=== PATIENT | female | born 1955 | race Caucasian/White ===

== ENCOUNTER 2018-09-08 07:30 | Day surgery (SDC) | payer BC, SELFPAY ==
[2018-08-31 15:03] VITALS: BMI 29.6
[2018-09-08] VITALS (13 sets, daily range): BP systolic 105–130; BP diastolic 67–76; PULSE 58–80; RESP 6–16; TEMP 36–37.1; O2SAT 93–99; BMI 29.4
--- NOTE | 2018-09-08 | DI.MG.S_ITS ---
SPECIMEN RIGHT BREAST: 09/08/2018 CLINICAL: Right breast cancer. Correlation is made to exams dated: 07/29/2018 ultrasound biopsy, 07/20/2018 ultrasound, and 07/20/2018 mammogram - [facility]. A specimen was imaged for the abnormality located in the right breast at 4 o'clock posterior depth. Sugical specimen contains wire and adjacent marker clip. IMPRESSION: SPECIMEN The imaged specimen includes wire and adjacent marker clip. This exam was interpreted at Station ID: [id number]. Grant Wu jl/:09/08/2018 15:13:58
--- NOTE | 2018-09-08 | DI.NM.S_ITS ---
PROCEDURE: NM SENTINEL NODE W IMAGING RADIOPHARMACEUTICAL: 1.0 mCi Millipore filtered Tc-99m sulfur colloid. INDICATIONS: Malignant neoplasm of unspecified site of right female breas TECHNIQUE: The area around the nipple was prepped and draped in a sterile fashion. Tc-99m sulfur colloid was injected intra-dermally in the outer edge of the areola in the right breast. Images were obtained subsequently. A body contour outline was obtained. FINDINGS: There is/are 9 lymph node(s) in the ipsilateral axilla, which is marked on the skin and the images for referring physician. IMPRESSION: Administration of radiotracer into the right breast periareolar region for intra-operative sentinel lymph node localization. Dictated by: Annalise Hoskins MD, PhD on 09/08/2018 at 10:41 Approved by: Annalise Hoskins MD, PhD on 09/08/2018 at 10:43
--- NOTE | 2018-09-08 | DI.MG.S_ITS ---
UNILATERAL RIGHT DIGITAL DIAGNOSTIC MAMMOGRAM POST-NEEDLE BIOPSY: 09/08/2018 CLINICAL: Right breast cancer. Comparison is made to exams dated: 07/29/2018 ultrasound biopsy, 07/20/2018 mammogram - [facility], and 07/23/2017 mammogram - [facility]. The tissue of right breast is heterogeneously dense. This may lower the sensitivity of mammography. There is a marker clip in the appropriate position in the right breast at 4 o'clock posterior depth. There is a biopsy clip associated with the wire. IMPRESSION: POST PROCEDURE MAMMOGRAM FOR MARKER PLACEMENT Successful wire localization of clip. This exam was interpreted at Station ID: [id number]. NOTE: For mammograms, a report in lay terms will be sent to the patient. Approximately 15% of breast malignancies will not be visualized mammographically. In the management of a palpable breast mass, a negative mammogram must not discourage biopsy of a clinically suspicious lesion. Electronically Signed By: Grant Wu jl/:09/08/2018 10:01:16 ACR BI-RADS Category Post-procedure mammogram for marker placement
--- NOTE | 2018-09-08 | DI.US.S_ITS ---
ULTRASOUND GUIDED WIRE LOCALIZATION RIGHT BREAST: 09/08/2018 CLINICAL: Post wire placement. Right breast cancer. Correlation is made to exams dated: 09/08/2018 mammogram - [facility], 07/20/2018 mammogram - [facility], and 07/23/2017 mammogram - [facility]. A wire localization using ultrasound guidance was performed for the marker clip located in the right breast at 4 o'clock posterior depth. The skin was prepped in the usual manner. Local anesthetic was administered to the access site. The localization was approached from the lateral aspect. A wire was inserted into the targeted area under ultrasound guidance. IMPRESSION: WIRE LOCALIZATION Wire localization for the marker clip in the right breast at 4 o'clock posterior depth was successful. A specimen radiograph is recommended. This exam was interpreted at Station ID: [id number]. Grant luz/:09/08/2018 10:03:24
--- NOTE | 2018-09-08 | PATH_ITS ---
[facility] Accession Number: [id number] . 01 Material submitted: . PART A: RIGHT BREAST MASS PART B: RIGHT AXILLARY SENTINEL NODES PART C: RIGHT AXILLARY FAT . 02 Diagnosis: A. Right Breast, Excision: Multiple foci of invasive carcinoma. Please see CAP Summary below. . B. Right Axillary [place] Lymph Nodes, Excision: 7 lymph nodes negative for metastatic carcinoma. Please see CAP Summary below. . C. Right Axillary Fat, Biopsy: Breast tissue with no evidence of atypical hyperplasia, in-situ, or invasive carcinoma. . CAP CANCER CASE SUMMARY . Procedure: Excision Specimen Laterality: Right Tumor site: 1 O'Clock . Tumor size: 18 MM Histologic type: Invasive carcinoma with ductal and lobular features. Histologic grade: (Early Histologic Score) Glandular/Tubular differentiation: Score 3 Nuclear Pleomorphism: Score 2 Mitotic Rate: Score 1 Overall Grade: Grade 2 . Tumor focality: Multiple foci of invasive carcinoma Number of foci: 2 Sizes of individual foci: 18 MM, 3 MM Ductal carcinoma in situ: Present, negative for extensive intraductal component. Size (Extent) of DCIS: 9 MM Architectural patterns: Cribriform Nuclear grade: Grade 1 (Low) Necrosis: Not identified Lobular carcinoma in situ: No LCIS in specimen . Tumor Extension Skin: Not applicable Nipple: Not applicable Skeletal muscle: Not applicable . Margins Invasive Carcinoma Margins: Uninvolved by invasive carcinoma Anterior: 2 MM Medial: 5 MM Remaining margins are all greater than 10 MM. DCIS Margins: Uninvolved by DCIS Anterior: 6 MM Remaining margins are all greater than 10 MM. . Regional Lymph Nodes: Uninvolved by tumor cells. Number of Lymph Nodes Examined: 7 Number of [place] Lymph Nodes Examined: 7 . Treatment effect: No known presurgical therapy. . Lymphovascular invasion: Not identified. Dermal lymphovascular invasion: No skin present. . Pathologic Stage Classification (pTNM, AJCC 8th Edition) TNM Descriptors: m (multiple foci of invasive carcinoma) Primary Tumor: pT1c Regional Lymph Nodes: pN0 . Additional Pathologic Findings: Invasive ductal carcinoma (second focus, with the following features): 1. Early Grade 1 (poor tubule formation-3, low mitotic rate-1, low nuclear pleomorphism-1) 2. Size: 6 MM 3. DCIS: Present, low grade, cribriform, with no necrosis. 4. Prognostic markers: -Estrogen Receptor (SP1): Strongly positive, 100% of cells. -Progesterone Receptor (1E2): Moderately positive, 100% of cells. -Her2 (4B5): Negative (Socre 1+). . Microcalcifications: Present in association with DCIS and invasive carcinoma. . Ancillary studies (for largest focus of invasive carcinoma): Biomarkers Performed Previously: [id number] (Pathology, [facility]) Estrogen Receptor (ER) Status, per report: Positive (3+, 95%) Progesterone Receptor (PgR) Status, per report: Positive (3+, 95%) HER2 (by immunohistochemistry): Negative (faint 1+) [facility]/09/14/2018 . 02 Comment: A second separate focus of invasive ductal carcinoma is present 6 to 8 mm inferior to the larger lesion. The larger lesion is primarily ductal carcinoma, and is strongly e-cadherin positive. However; there are areas of lobular phenotype with single cell infiltration and single file lines of carcinoma cells. Therefore the larger lesion is classified as an invasive carcinoma with ductal and lobular features. . The size of the carcinoma in the CAP summary is based on the combined gross evaluation, involvement of 5 sequential slices, and on-slide measurements. . 02 Electronically signed: . Shivani Woo MD, Pathologist NPI- [id number] . 01 Gross description: . (A) Received in formalin, labeled right breast mass, long stitch anterior, short stitch medial, is a piece of breast tissue (1.7 cm AP, 5.8 cm SI, 5.5 cm ML) with no overlying skin. The specimen was oriented with two black sutures (long-anterior, short-medial). A localization wire enters the anterior central lateral aspect. The specimen is serially sectioned SI into 15 slices with the superior and inferior resections margins as slices #1 and #15. The slices are approximately 0.3 cm-0.4 cm thick. The breast tissue is fatty and contains a burr-white solid firm irregular mass (1.8 x 1.7 x 1.1 cm) involving slices #6-#10. The localization wire ends in slice #6 adjacent to the mass. The mass is 0.4 cm from the anterior, 1.4 cm from the posterior, 1.9 cm from the superior, 2.0 cm from the inferior, 0.9 cm from the medial, and 3.3 cm from the lateral resection margins. A possible biopsy site (0.5 x 0.2 x 0.2 cm) is identified involving slices #4 and #5. No biopsy marker is identified. Ink code: purple-anterior; yellow-posterior; black-superior; orange-inferior; green-medial; blue-lateral. Section code: (A1) superior resection margin, perpendicularly sectioned, event sales representative; (A2-A4) slice #4, tissue with possible biopsy site, trisected and entirely submitted ML; (A5-A7) slice #5, tissue adjacent to mass, possible biopsy site, trisected and entirely submitted ML; (A8-A11) slice #6, quartered, entirely submitted ML; (A12-A15) slice #7, quartered, entirely submitted ML: (A16-A19) slice #8, quartered and entirely submitted ML; (A20-A21) slice #9, anterior half bisected and submitted ML; (A22-A23) slice #10, anterior half, bisected and submitted ML; (A24-A27) slice #11, quartered, entirely submitted ML; (A28-A29) slice #12, event sales representative tissue; (A30) inferior resection margin, perpendicularly sectioned, event sales representative. Note: The mass appears to be entirely submitted. (A31) remaining slice 9; (A32-33) remaining slice 10; (A34) event sales representative slice 12; (A35-37) slice 13 entirely submitted. . . . . (B) Received in formalin, labeled sentinel nodes right axilla, are multiple pieces of ames-yellow rubbery adipose tissue (5.5 x 4.0 x 1.8 cm in aggregate) containing multiple possible lymph nodes (0.1 x 0.1 x 0.1 cm-1.0 x 0.9 x 0.7 cm). Section code: (B1, B2) multiple intact lymph nodes; (B3) one bisected lymph node. (C) Received in formalin, labeled right axillary fat, are multiple pieces of ames-yellow rubbery adipose tissue (5.3 x 4.5 x 1.8 cm in aggregate) containing multiple possible lymph nodes (0.1 x 0.1 x 0.1 cm-0.2 x 0.2 x 0.1 cm). Multiple intact lymph nodes are submitted in cassettes C1-C3. . Note: Approximate total fixation time in formalin for all specimens-69 hours 30 minutes, calculated using a collection date of 09/08/2018 with no collection time given. ([id number]) /MRV . 02 Microscopic: . Testing performed on Blocks B1, B2, B3: Cytokeratin LEATHA: Negative in all three blocks. . Testing performed on Block A16: E-Cadherin: Uniformly positive . Testing performed on Block Number A29. Smooth muscle myosin: Absent around the cells of interest. p63: Absent around the cells of interest. Estrogen Receptor (SP1): Strongly positive, 100% of cells. Progesterone Receptor (1E2): Moderately positive, 100% of cells. HER2 (4B5): Negative (Score 1+) . TECHNICAL NOTE: Cold Ischemia and Fixation Times: Meets requirements in the latest version of the ASCO/CAP guidelines. The scoring criteria for breast biomarkers by immunohistochemistry is based on the current ASCO/CAP guidelines (Shanell et al, Arch Pathol Lab Med 2010: 134(6): 907-922 / [place] RODRIGUEZ et al, Arch Pathol Lab Med 2014: 138(2): 241-256). Deparaffinized sections of formalin fixed tissue (along with appropriate positive controls) are incubated with the above antibody(s). Using the automated Blossom stainer, tissue is incubated with the designated antibody* which is then localized by a non-biotin, dual polymer detection system. The external controls are reviewed for appropriate reactivity and found to be adequate. Results on the target cell population are indicated above. These tests have not been validated on decalcified tissue. * This test was developed and its performance characteristics determined by [facility]. It has not been cleared or approved by the U.S. Food and Drug Administration. The FDA has determined that such clearance or approval is not necessary. This test is used for clinical purposes. It should not be regarded as investigational or for research. . 02 Pathologist provided ICD-10: C50.911 . 02 CPT . 640978, 832958, 983487, [id number], [id number] Performed at: 01 [facility] [address] [place] [address] [id number] MD Nii Benjamin MD Phone: [phone] Performed at: 02 [place] [id number] [place] [address] [id number] MD Shivani Woo MD Phone: [phone]
[2018-09-08] MEDS: LACTATED RINGERS 1,000 ML 42 ML IV ×2 (10:14→12:14)
--- NOTE | 2018-09-08 10:23 | PM.PREOP ---
Pre-operative Note Interval Note Pre-op Check: Yes History & Physical Reviewed by Physician and Yes Exam Performed Changes: Yes
[2018-09-08] MEDS: CEFAZOLIN 2 GM/100 ML FROZ.PIGGY IV (11:15)
--- NOTE | 2018-09-08 11:30 | SUR.OPER ---
Supine on padded OR bed, head on pillow, arms secured on padded arm boards at <90 degrees abduction, legs uncrossed, safety belt at thigh, tape over blanket over lower legs.
[2018-09-08] MEDS: BUPIVACAINE 0.5% (PF) VIAL 30 ML INJ (11:39)
--- NOTE | 2018-09-08 13:37 | PM.OP.1 ---
Operative Date/Time/Diagnoses Date of procedure: 09/08/18 Time of procedure: 13:20 Pre-op diagnosis: Right-sided breast cancer Post-op diagnosis: same Procedure & Clinicians Procedure: Needle localization and lumpectomy with sentinel node biopsies Same procedure as scheduled: Yes Indications: Surgical treatment of breast cancer Surgeon: Jeremy Cruz Click Yes if Unassisted: Yes Anesthesia Type: General Operative Notes Findings: Multiple very small nodes. I removed at least 6. Closure Type: primary Specimen(s): other (Mass plus sentinel nodes plus axillary fat) Implants & Drains: None Estimated Blood Loss (mL): 30 Blood products transfused: none Procedure in detail: The patient is placed supine on the operating room table underwent general LMA anesthesia. A roll was placed under right flank in her right arm supported. She was prepped and draped in usual fashion. Curvilinear incision was made overlying the mass in the upper mid breast. The incision incorporated the insertion site of the needle. Using the needle as a guide the tissue around it was removed. It was submitted as specimen and appeared to be completely removed with a clip in the center of the specimen. On palpation there were no abnormalities felt in the wall. The tissue was all soft. Clips were placed to roseline the cavity of the biopsy which was partially closed with interrupted 3 0 Polysorb. The subcu was closed with 3 0 Vicryl. Skin was closed running 4 0 Vicryl subcuticular stitch. Attention was turned to the right axilla. Local anesthetic was infiltrated and an incision made just inferior to the hair-bearing area of the axilla. Was carried down using cautery into the axilla proper. Using Navigator probe multiple lymph nodes were removed. I also removed some additional fat from the axilla. The 10 sec counts on the nodes removed were 9505, 9529, 1843 9564, 7568., and 14 70. I placed all of the tissue containing sentinel nodes within 1 container. A separate container was used to take the fat with no Ángela counts. After checking to make sure there were no other hot areas the wound was irrigated and hemostasis achieved. The axilla was closed with interrupted 3 0 Vicryl. The subcu was closed with interrupted 3 Vicryl. The skin was closed running 4 0 Vicryl subcuticular stitch and Steri-Strips. Steri-Strips were also used to close the breast incision. Dressings were applied the patient was awakened extubated taken to recovery room good condition. Complications: none Condition: stable Disposition: PACU
--- NOTE | 2018-09-08 13:41 | SUR.PHASEI ---
pt arrived, initially not needing 02, sleepy, 02 2l nc added. pt arousable and follows commands
[2018-09-08] MEDS: fentaNYL 100 MCG/2 ML INJ 25 MCG IV ×4 (13:59→14:15)
--- NOTE | 2018-09-08 14:15 | SUR.PHASEI ---
c/o pain treated with fentanyl.
[2018-09-08] MEDS: OXYCODONE/ACETAMINOPHEN 5/325 TABLET 1 TAB PO ×2 (14:21→15:17)
--- NOTE | 2018-09-08 14:24 | SUR.PHASEI ---
medicated with percocet after applesauce tolerated.
--- NOTE | 2018-09-08 14:49 | SUR.PHASEII ---
PT ARRIVED TO PHASE II VIA STRETCHER. PT SITTING UP TALKING TO RN. PT FAMILY BROUGHT TO BEDSIDE. IV SITE CLEAR. DRSG TO SURGICAL SITES OBSERVED TO BE C/D/I. PT DENIES ANY NAUSEA. PT STATES PAIN IS 3/10 AND TOLERABLE AT THIS TIME. BED IN LOWEST POSITION AND CALL LIGHT GIVEN TO PT. PT APPEARS COMFORTABLE AT THIS TIME.
== END 2018-09-08 15:49 | disposition home or self-care (01) ==
PROVIDERS: PCP Family Medicine; Visit Provider Specialist
PROC: (CPT 19301; principal; 2018-09-08 11:00)
DX: C50.911 Malignant neoplasm of unspecified site of right female breast (principal); Z17.0 Estrogen receptor positive status [ER+]; E78.5 Hyperlipidemia, unspecified; E03.9 Hypothyroidism, unspecified
CPT/HCPCS: 19301; 38500; 19285; 76098; 77065; 78195; A9541; J0690; J1100; J2405; J2704; J3010

== ENCOUNTER → 2018-11-09 13:01 | Outpatient (CLI) | payer BC, SELFPAY | PROVIDERS: PCP Family Medicine | DX: C50.919 Malignant neoplasm of unspecified site of unspecified female breast (principal); E07.9 Disorder of thyroid, unspecified | CPT/HCPCS: 77080 ==

== ENCOUNTER → 2019-07-17 10:45 | Outpatient (CLI) | payer BC, SELFPAY ==
--- NOTE | 2019-07-17 10:46 | DI.MG.S_ITS ---
BILATERAL DIGITAL SCREENING MAMMOGRAM 3D/2D WITH CAD POST LUMPECTOMY: 07/17/2019 CLINICAL: Routine screening. Personall history of breast cancer. Family history of breast cancer. Comparison is made to exams dated: 09/08/2018 mammogram - [facility], 07/29/2018 mammogram, 07/20/2018 mammogram - [facility], 07/23/2017 mammogram, and 09/08/2013 mammogram - [facility]. The tissue of both breasts is heterogeneously dense. This may lower the sensitivity of mammography. Current study was also evaluated with a Computer Aided Detection (CAD) system. There are benign post operative findings in the right breast. No significant masses, calcifications, or other findings are seen in either breast. There has been no significant interval change. IMPRESSION: There is no mammographic evidence of malignancy. A 1 year screening mammogram is recommended. This exam was interpreted at Station ID: [id number]. NOTE: For mammograms, a report in lay terms will be sent to the patient. Approximately 15% of breast malignancies will not be visualized mammographically. In the management of a palpable breast mass, a negative mammogram must not discourage biopsy of a clinically suspicious lesion. Electronically Signed By: Julieth max/francoise:07/17/2019 16:51:40 copy to: Joni Enciso letter sent: Normal Exam ACR BI-RADS Category 2: Benign Finding(s) 3342F
== END ==
PROVIDERS: PCP Family Medicine
DX: Z12.31 Encounter for screening mammogram for malignant neoplasm of breast (principal); Z85.3 Personal history of malignant neoplasm of breast; Z80.3 Family history of malignant neoplasm of breast
CPT/HCPCS: 77063; 77067

== ENCOUNTER → 2020-07-20 11:10 | Outpatient (CLI) | payer MEDICARE, BC, SELFPAY ==
--- NOTE | 2020-07-20 11:11 | DI.MG.S_ITS ---
BILATERAL DIGITAL SCREENING MAMMOGRAM 3D/2D WITH CAD: 07/20/2020 CLINICAL: Routine screening. Personal history of right breast cancer. Family history of breast cancer. Comparison is made to exams dated: 07/17/2019 mammogram - [facility], 07/20/2018 mammogram - [facility], 07/23/2017 mammogram - [facility], and 09/08/2018 localization - [facility]. The tissue of both breasts is heterogeneously dense. This may lower the sensitivity of mammography. Current study was also evaluated with a Computer Aided Detection (CAD) system. There are benign post operative findings in the right breast. No significant masses, calcifications, or other findings are seen in either breast. There has been no significant interval change. IMPRESSION: BENIGN There is no mammographic evidence of malignancy. A 1 year screening mammogram is recommended. This exam was interpreted at Station ID: [id number]. NOTE: For mammograms, a report in lay terms will be sent to the patient. Approximately 15% of breast malignancies will not be visualized mammographically. In the management of a palpable breast mass, a negative mammogram must not discourage biopsy of a clinically suspicious lesion. Electronically Signed By: Arash lagunas/francoise:07/22/2020 09:03:40 copy to: Joni Enciso letter sent: Normal Exam ACR BI-RADS Category 2: Benign Finding(s) 3342F
== END ==
PROVIDERS: PCP Family Medicine; Referring Provider Internal Medicine Hematology & Oncology; Visit Provider Internal Medicine Hematology & Oncology
DX: Z12.31 Encounter for screening mammogram for malignant neoplasm of breast (principal); Z85.3 Personal history of malignant neoplasm of breast; Z80.3 Family history of malignant neoplasm of breast
CPT/HCPCS: 77063; 77067

== ENCOUNTER → 2021-06-27 09:10 | Outpatient (CLI) | payer MEDICARE, BC, SELFPAY ==
--- NOTE | 2021-06-27 09:11 | DI.US.S_ITS ---
PROCEDURE: US ABDOMEN COMPLETE INDICATIONS: TRANSAMINITIS; HISTORY BREAST CANCER TECHNIQUE: Real-time scanning was performed of the abdominal and retroperitoneal organs, with image documentation. COMPARISON: None. FINDINGS: Liver: Liver is normal in size and homogeneous in echotexture. Gallbladder: Gallbladder is sonographically normal. No gallstones. No gallbladder wall thickening. No pericholecystic fluid. No sonographic Santos sign. Biliary ducts: Intrahepatic bile ducts are non-dilated. Extrahepatic bile duct caliber measures 3.7 mm. Normal is 6-7 mm or less in diameter, or 10 mm or less post-cholecystectomy. Pancreas: Visualized portions of the pancreas are sonographically normal. Spleen: Spleen is normal in size and homogeneous in echotexture. Kidneys: Kidneys are normal in size and echotexture. Right kidney measures 10.8 cm long; left kidney measures 10.0 cm long. No hydronephrosis or nephrolithiasis. No solid masses. Aorta: Visualized aorta is normal in caliber at less than 3 cm. Iliacs: Proximal common iliac arteries are normal in caliber at less than 2.5 cm. IVC: Intrahepatic inferior vena cava is patent. Miscellaneous: No free abdominal fluid. IMPRESSION: Normal abdominal sonogram. Dictated by: Annalise Hoskins MD, PhD on 06/27/2021 at 11:21 Approved by: Annalise Hoskins MD, PhD on 06/27/2021 at 11:24
== END ==
PROVIDERS: PCP Family Medicine; Referring Provider Internal Medicine Hematology & Oncology; Visit Provider Internal Medicine Hematology & Oncology
DX: C50.919 Malignant neoplasm of unspecified site of unspecified female breast (principal); R74.01 Elevation of levels of liver transaminase levels
CPT/HCPCS: 76700

== ENCOUNTER → 2022-07-16 09:32 | Outpatient (CLI) | payer MEDICARE, BC, SELFPAY ==
--- NOTE | 2022-07-16 10:47 | DI.MG.S_ITS ---
BILATERAL DIGITAL SCREENING MAMMOGRAM 3D/2D WITH CAD POST LUMPECTOMY: 07/16/2022 CLINICAL: Routine screening. Personal history of right breast cancer. Family history of breast cancer. Comparison is made to exams dated: 06/27/2021 mammogram - [facility], 07/20/2020 mammogram, and 07/17/2019 mammogram - [facility]. Both breasts are heterogeneously dense, which may obscure small masses (category c / 51-75% glandular tissue). Current study was also evaluated with a Computer Aided Detection (CAD) system. There are benign post operative findings in the right breast. No significant masses, calcifications, or other findings are seen in either breast. There has been no significant interval change. IMPRESSION: BENIGN There is no mammographic evidence of malignancy. A 1 year screening mammogram is recommended. This exam was interpreted at Station ID: [id number]. NOTE: For mammograms, a report in lay terms will be sent to the patient. Approximately 15% of breast malignancies will not be visualized mammographically. In the management of a palpable breast mass, a negative mammogram must not discourage biopsy of a clinically suspicious lesion. Electronically Signed By: Vasu goldman/francoise:07/20/2022 13:36:29 copy to: Joni Enciso letter sent: Normal Exam ACR BI-RADS Category 2: Benign Finding(s) 3342F
== END ==
PROVIDERS: PCP Family Medicine; Referring Provider Internal Medicine Hematology & Oncology; Visit Provider Internal Medicine Hematology & Oncology
DX: Z12.31 Encounter for screening mammogram for malignant neoplasm of breast (principal); Z85.3 Personal history of malignant neoplasm of breast; Z80.3 Family history of malignant neoplasm of breast
CPT/HCPCS: 77063; 77067